=== PATIENT | male | born 1985 | race Caucasian/White ===

== ENCOUNTER → 2021-11-12 | Outpatient (CLI) | payer OTHER | LOC: RAD 08:49 | DX: R94.6 Abnormal results of thyroid function studies (principal) ==

== ENCOUNTER 2024-12-10 18:47 | Emergency (ER) | payer MEDICARE, OTHER ==
[~2024-12-10] VITALS: Wt 76.4 kg
[2024-12-10] MEDS ORDERED: Cyclobenzaprine 10 MG TAB PO ONE (20:15)
[2024-12-10] MEDS ORDERED: Ketorolac 30 MG/ML VIAL IM ONE (20:15)
[2024-12-10] MEDS ORDERED: Home Cyclobenzaprine 10 MG #2 TABS/PACK PO ONE (20:30)
[2024-12-10 20:42] VITALS: BP 132/86
== END 2024-12-10 20:42 | disposition home or self-care (01) ==
LOC: ED 18:47
DX: R51.9 Headache, unspecified (principal); M54.2 Cervicalgia; M25.511 Pain in right shoulder
CPT/HCPCS: J1885